=== PATIENT | female | born 1970 | race African-American/Black ===

== ENCOUNTER → 2021-05-07 00:48 | Outpatient (CLI) | payer BC, SELFPAY ==
[2021-05-07 18:23] LABS: SARS-CoV-2 RNA PCR Negative
== END ==
PROVIDERS: Visit Provider Internal Medicine Gastroenterology
DX: Z01.812 Encounter for preprocedural laboratory examination (principal); Z20.822 Contact with and (suspected) exposure to COVID-19
CPT/HCPCS: C9803; U0003; U0005

== ENCOUNTER 2021-05-10 02:23 | Day surgery (SDC) | payer BC, SELFPAY ==
[2021-04-25 13:26] VITALS: BMI 32.8
--- NOTE | 2021-05-10 10:12 | P.PNAN_ITS ---
Anes - Initial Pre Proc Eval Procedure: Operation Date: 05/10/21 12:30 Proposed Procedures p Screening Colonoscopy - Stone Dumont MD Date/Time: 05/10/21 10:12 Surgeon: Stone Dumont MD Pre Op Diagnosis: neoplasm screening Patient Data Age: 50 Gender: F Height: 1.7 m Weight: 95 kg Allergies Allergy/AdvReac Type Severity Reaction Status Date / Time oxycodone Allergy Itching Verified 05/10/21 11:17 gabapentin AdvReac Depression Verified 05/10/21 11:17 Home Medications Medication Instructions Recorded Confirmed Type escitalopram oxalate 10 mg PO DAILY 04/25/21 04/25/21 History pregabalin 75 mg PO BID 04/25/21 04/25/21 History trazodone 50 mg PO DAILY 04/25/21 04/25/21 History Patient hx anesthesia problems: none Family hx anesthesia problems: none Results Review: All pre-operative results and documents have been reviewed as part of the pre-operative evaluation. [facility] Past Medical History Medical History (Updated 05/10/21 @ 11:43 by Stone Dumont MD) Anxiety Arthritis Cervical vertebral fusion Chronic narcotic use Obesity Seizure Social History Social History Years smoked: 3 Smoking status: Current some day smoker Tobacco type: cigars Alcohol intake: current Alcohol use details: rarely Living arrangements: alone Spiritual care concerns: No Anes - Eval Final PreProcedure Day of Procedure 05/10/21 10:12 Patient weight: obese Heart: regular rate and rhythm Lungs: clear to auscultation and normal air movement Airway: Mallampati scale class II Neurological: alert and oriented Last oral intake: >/= 8 hours ASA classification: III Emergent: no Anesthetic plan: proceed Anesthesia type and monitoring: general GIVS Results Review: All pre-operative results and documents have been reviewed as part of the pre-operative evaluation. Informed Consent: The patient's anesthetic plan and its attendant risks and benefits were discussed with the patient/family/POA. Questions were solicited and answers provided to the satisfaction of the patient/family/POA.
[2021-05-10 11:20] VITALS: BP 122/71; PULSE 78; TEMP 36.1; O2SAT 100
[2021-05-10] MEDS: LACTATED RINGERS 1,000 ML 150 ML IV CONT (11:33)
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
[2021-05-10 12:21] VITALS: BP 134/92; PULSE 78; O2SAT 100
[2021-05-10 12:31] VITALS: BP 104/68; PULSE 95; O2SAT 100
[2021-05-10 12:41] VITALS: BP 114/77; PULSE 86; O2SAT 100
== END 2021-05-10 12:48 | disposition home or self-care (01) ==
PROVIDERS: Visit Provider Internal Medicine Gastroenterology
PROC: 0DJD8ZZ Inspection of Lower Intestinal Tract, Via Natural or Artificial Opening Endoscopic (ICD-10-PCS; CPT 45378; principal; 2021-05-10 12:30)
DX: Z12.11 Encounter for screening for malignant neoplasm of colon (principal); Z83.71 Family history of colonic polyps; D12.5 Benign neoplasm of sigmoid colon; K57.30 Diverticulosis of large intestine without perforation or abscess without bleeding; K64.8 Other hemorrhoids; F41.9 Anxiety disorder, unspecified; M19.90 Unspecified osteoarthritis, unspecified site; Z98.1 Arthrodesis status; F17.290 Nicotine dependence, other tobacco product, uncomplicated; E66.9 Obesity, unspecified; Z68.29 Body mass index [BMI] 29.0-29.9, adult
CPT/HCPCS: 45385; 88305; J7120